=== PATIENT | female | born 1975 | race Caucasian/White ===

== ENCOUNTER 2021-04-29 20:50 | Emergency (ER) | payer OTHER ==
[~2021-04-29] VITALS: Ht 157.5 cm; Wt 79.4 kg
[~2021-04-29 20:50] MED LIST: BACTRIM DS TAB1 EACH PO; CLEOCIN 150MG150 MG PO; DIFLUCAN150 MG PO; HEPARIN SO5000 UTS/1 SC; HYDROCODON-ACE1 EAC4 PO; IBUPROFEN600 MG PO; IBUPROFEN800 MG PO; KEFLEX500 MG PO; LABETALOL HCL200 MG PO; PERCOCET 5-3251 EACH PO; PROBIOTIC & AC1 EACH PO; ULTRAM50 MG PO; ZOFRAN ODT 4 MG4 MG PO
== END 2021-04-30 01:40 | disposition home or self-care (01) ==
LOC: ER1 20:50
DX: Z23 Encounter for immunization (principal); U07.1 COVID-19; I10 Essential (primary) hypertension; M06.9 Rheumatoid arthritis, unspecified; Z90.49 Acquired absence of other specified parts of digestive tract; Z88.0 Allergy status to penicillin
CPT/HCPCS: 99284; M0243; U0002